=== PATIENT | male | born 1960 | race Two or more races ===

== ENCOUNTER 2021-01-05 09:20 | Emergency (ER) | payer OTHER ==
[~2021-01-05] VITALS: Ht 175.3 cm; Wt 80.3 kg
[2021-01-05] MEDS ORDERED: HYDROmorphone HCL 2 MG/ML VL IV ONE (09:45)
[2021-01-05] MEDS ORDERED: SILVER SULFADIAZINE 1 % TOPICAL CREAM 50GM TOP ONE (09:45)
[2021-01-05] MEDS ORDERED: SODIUM CHLORIDE 0.9% 1,000 ML IV ONE ×2 (09:45)
[2021-01-05] MEDS ORDERED: ONDANSETRON HCL 4 MG/2 ML VIAL IV ONE (09:45)
[2021-01-05 09:54] LABS: Basophils # (auto) 0 10 ^3/uL (0-0.2); Basophils % (auto) 0.7 % (0.0-2.0); Eosinophils # (auto) 0 10 ^3/uL (0-0.8); Eosinophils % (auto) 0.8 % (0.0-7.0); Hematocrit 38.7 % (41.0-53.0); Hemoglobin 13.7 g/dL (13.5-17.5); Lymphocytes # (auto) 0.9 10 ^3/uL (0.4-5.4); Lymphocytes % (auto) 22.7 % (10.0-50.0); Mean Corpuscular Hemoglobin 32.1 pg (28.0-32.0); Mean Corpuscular Hgb Conc. 35.5 g/dL (32.0-36.0); Mean Corpuscular Volume 90.4 fL (80.0-100.0); Monocytes # (auto) 0.3 10 ^3/uL (0-1.3); Monocytes % (auto) 8.5 % (0.0-12.0); Neutrophils # (auto) 2.6 10 ^3/uL (1.6-8.6); Neutrophils % (auto) 67.3 % (37.0-80.0); Platelet Count (auto) 299 10^3/uL (140-450); Red Blood Cells 4.28 10^6/uL (4.5-5.90); Red Cell Distribution Width 13.9 % (11.8-14.3); White Blood Cell 3.9 10^3/uL (4.4-10.8)
[2021-01-05] MEDS ORDERED: PIPERACILLIN-TAZOB 3.375GM 100 ML IV ONE (10:00)
[2021-01-05 10:03] LABS: Potassium 3.8 mmol/L (3.5-5.1)
[2021-01-05 10:10] LABS: Albumin 3.5 g/dL (3.4-5.0); BUN/Creatinine Ratio 7.3; Bilirubin, Total 0.7 mg/dL (0.2-1.0); Calcium 8.8 mg/dL (8.5-10.1); Total Protein 8.9 g/dL (6.4-8.2)
[2021-01-05] MEDS ORDERED: diphenhdrAMINE HCL 50 MG/1 ML VL ONE (11:40)
[2021-01-05] MEDS ORDERED: diphenhdrAMINE HCL 50 MG/1 ML VL IV ONE (12:15)
[2021-01-05 12:41] VITALS: BP 136/68
== END 2021-01-05 13:13 | disposition short-term general hospital (02) ==
LOC: EDBD 09:20 → ER 09:20
DX: T24.202A Burn of second degree of unspecified site of left lower limb, except ankle and foot, initial encounter (principal); I10 Essential (primary) hypertension; F17.200 Nicotine dependence, unspecified, uncomplicated; R42 Dizziness and giddiness; F12.10 Cannabis abuse, uncomplicated; E87.1 Hypo-osmolality and hyponatremia; Z20.822 Contact with and (suspected) exposure to COVID-19; X12.XXXA Contact with other hot fluids, initial encounter; Y93.89 Activity, other specified; Y92.89 Other specified places as the place of occurrence of the external cause; Y99.8 Other external cause status
CPT/HCPCS: 16020; 36415; 71045; 73700; 80053; 82550; 84484; 85025; 87426; 96365; 96366; 96375; 99285; J1170; J1200; J2405; J2543; J7030

== ENCOUNTER 2021-02-17 13:11 | Inpatient (IN) | payer OTHER ==
[~2021-02-17] VITALS: Ht 172.7 cm; Wt 73.0 kg
[2021-02-17] MEDS ORDERED: THIAMINE 100mg/ml INJ (200mg/2ml VIAL) IV ONE (13:45)
[2021-02-17] MEDS ORDERED: SODIUM CHLORIDE 0.9% 1,000 ML IV ONE ×2 (13:45)
[2021-02-17 14:21] LABS: Basophils # (auto) 0 10 ^3/uL (0-0.2); Basophils % (auto) 0.7 % (0.0-2.0); Eosinophils # (auto) 0.1 10 ^3/uL (0-0.8); Eosinophils % (auto) 2.5 % (0.0-7.0); Hematocrit 27.1 % (41.0-53.0); Hemoglobin 9.3 g/dL (13.5-17.5); Lymphocytes % (auto) 24.8 % (10.0-50.0); Mean Corpuscular Hemoglobin 30.2 pg (28.0-32.0); Mean Corpuscular Hgb Conc. 34.5 g/dL (32.0-36.0); Mean Corpuscular Volume 87.5 fL (80.0-100.0); Monocytes # (auto) 0.6 10 ^3/uL (0-1.3); Monocytes % (auto) 13.6 % (0.0-12.0); Neutrophils # (auto) 2.4 10 ^3/uL (1.6-8.6); Neutrophils % (auto) 58.4 % (37.0-80.0); Red Blood Cells 3.09 10^6/uL (4.5-5.90); Red Cell Distribution Width 13.7 % (11.8-14.3); White Blood Cell 4.1 10^3/uL (4.4-10.8)
[2021-02-17 14:28] LABS: Albumin 2.4 g/dL (3.4-5.0); Anion Gap 13 (5-15); BUN/Creatinine Ratio 5.3; Blood Urea Nitrogen 4 mg/dL (7-18); Carbon Dioxide 23 mmol/L (21-32); Chloride 78 mmol/L (98-107); GFR African American 136 mL/min; GFR Non-African American 112 mL/min; Glucose 94 mg/dL (74-106); Magnesium 1.4 mg/dL (1.6-2.6)
[2021-02-17 14:34] LABS: Alanine Aminotransferase 15 U/L (16-61); Alkaline Phosphatase 93 U/L (45-117); Aspartate Aminotransferase 31 U/L (15-37); Bilirubin, Total 0.5 mg/dL (0.2-1.0); Total Protein 6.6 g/dL (6.4-8.2)
[2021-02-17 14:49] LABS: Potassium 2.5 mmol/L (3.5-5.1); Sodium 114 mmol/L (136-145)
[2021-02-17 15:07] LABS: Urine Bacteria NONE SEEN /hpf (None Seen); Urine Blood Negative /uL (Negative); Urine Specific Gravity 1.004 (1.001-1.035); Urine WBC 6 /hpf (0 - 3)
[2021-02-17] MEDS ORDERED: ONDANSETRON HCL 4 MG/2 ML VIAL IV ONE (15:15)
[2021-02-17] MEDS: POTASSIUM CHL 20MEQ/100ML 100 ML IV ONE ×2 (15:15→15:27)
[2021-02-17 15:23] LABS: Amphetamine Screen, Urine NEGATIVE (NEGATIVE); Barbiturate Scree,Urine NEGATIVE (NEGATIVE); Benzodiazephine Screen, Urine NEGATIVE (NEGATIVE); Cannabinoid Screen, Urine NEGATIVE (NEGATIVE); Cocaine Screen, Urine NEGATIVE (NEGATIVE); Opiate Scree,Urine NEGATIVE (NEGATIVE); Phencyclidine Screen, Urine NEGATIVE (NEGATIVE)
[2021-02-17] MEDS ORDERED: MORPHINE SULFATE INJECTION 2 MG/ML SYRG IV PRN ×3 (15:45→17:15)
[2021-02-17] MEDS ORDERED: MAGNESIUM SULFATE 1GM/100ML 100 ML IV ONE ×3 (15:45→23:28)
[2021-02-17] MEDS ORDERED: NITROGLYCERIN 0.4 MG SL TAB SL PRN ×2 (15:45→17:15)
[2021-02-17] MEDS ORDERED: chlordiazePOXIDE HCL 5 MG CAP PO ONE (15:45)
[2021-02-17] MEDS: POTASSIUM CHLORIDE 20 MEQ, LIDOCAINE 1% (LOCAL ANESTH.) 2 ML in SODIUM CHL 0.9% 100 ML IV SCH ×3 (16:00→23:21)
[2021-02-17] MEDS ORDERED: chlorproMAZINE INECTION 25 MG in SODIUM CHL 0.9% 50 ML IV ONE (16:00)
[2021-02-17] MEDS ORDERED: HYDRX10T PO (16:29)
[2021-02-17] MEDS ORDERED: BACL10TA PO (16:29)
[2021-02-17] MEDS ORDERED: HYDR1TAB97 PO (16:29)
[2021-02-17] MEDS ORDERED: BENA20TA14 PO (16:29)
[2021-02-17] MEDS ORDERED: HYDR12.55 PO (16:29)
[2021-02-17] MEDS ORDERED: IBUP600T27 PO (16:29)
[2021-02-17] MEDS ORDERED: OME20T PO (16:29)
[2021-02-17] MEDS ORDERED: LORazepam 0.5 MG TAB PO PRN (17:15)
[2021-02-17] MEDS ORDERED: ACETAMINOPHEN 325 MG TAB PO PRN (17:15)
[2021-02-17] MEDS ORDERED: FOLIC ACID 1 MG TAB PO ONE (17:15)
[2021-02-17] MEDS ORDERED: MULTIPLE VITAMINS W/ MINERALS TAB PO ONE (17:15)
[2021-02-17] MEDS ORDERED: SOD CHL 0.9%/ KCL 20MEQ 1,000 ML IV SCH (17:15)
[2021-02-17] MEDS ORDERED: CLINDAMYCIN 600MG IV 50 ML IV ONE (17:15)
[2021-02-17] MEDS ORDERED: THIAMINE HCL 100 MG TAB PO ONE (17:15)
[2021-02-17] MEDS ORDERED: PANTOPRAZOLE 40 MG/10 ML VIAL INJ IV ONE (17:15)
[2021-02-17] MEDS ORDERED: METOCLOPRAMIDE HCL 5MG/ml INJ 2ml VIAL IV PRN (17:15)
[2021-02-17] MEDS ORDERED: ALUM & MAG HYDROX-SIMETH LIQ(MAALOX) 30 ML PO PRN (17:15)
[2021-02-17] MEDS ORDERED: cefTRIAXone 1GM/50ML D5W 50 ML IV ONE (17:15)
[2021-02-17] MEDS ORDERED: DOCUSATE SOD 100 MG CAP PO PRN (17:15)
[2021-02-17] MEDS ORDERED: POTASSIUM CHL 20MEQ/100ML 100 ML IV SCH (17:30)
[2021-02-17] MEDS: chlordiazePOXIDE HCL 25 MG CAP PO SCH (18:00)
[2021-02-17 20:34] LABS: Cholesterol 116 mg/dL (< 200); HDL Cholesterol 90 mg/dL (40-59); LDL Cholesterol 23 mg/dL (< 100); Triglycerides 29 mg/dL (< 150)
[2021-02-17] MEDS: MAGNESIUM SULFATE 1GM/100ML 100 ML IV SCH ×2 (21:25→23:30)
[2021-02-17 22:09] VITALS: BP 131/64
[2021-02-17] MEDS: CLINDAMYCIN 600MG IV 50 ML IV SCH (22:28)
[2021-02-17] MEDS: BACLOFEN 10 MG TAB PO SCH (22:37)
[2021-02-17] MEDS: SILVER SULFADIAZINE 1 % TOPICAL CREAM 50GM TOP SCH (22:37)
[2021-02-17] MEDS: hydrOXYzine HCL 10 MG TAB PO SCH (22:37)
[2021-02-18] MEDS: chlordiazePOXIDE HCL 25 MG CAP PO SCH ×2 (01:49→09:46)
[2021-02-18 05:00] VITALS: BP 154/74
[2021-02-18] MEDS: CLINDAMYCIN 600MG IV 50 ML IV SCH ×3 (06:21→22:36)
[2021-02-18] MEDS: BACLOFEN 10 MG TAB PO SCH ×3 (06:22→22:00)
[2021-02-18] MEDS: hydrOXYzine HCL 10 MG TAB PO SCH ×3 (06:23→22:00)
[2021-02-18 06:39] LABS: Magnesium 2.2 mg/dL (1.6-2.6); Potassium 3.2 mmol/L (3.5-5.1)
[2021-02-18 06:41] LABS: Phosphorus 3.1 mg/dL (2.5-4.90)
[2021-02-18 07:19] LABS: Basophils # (auto) 0 10 ^3/uL (0-0.2); Basophils % (auto) 0.4 % (0.0-2.0); Eosinophils # (auto) 0 10 ^3/uL (0-0.8); Eosinophils % (auto) 0.7 % (0.0-7.0); Hematocrit 26.2 % (41.0-53.0); Hemoglobin 9.3 g/dL (13.5-17.5); Lymphocytes # (auto) 0.6 10 ^3/uL (0.4-5.4); Lymphocytes % (auto) 12.1 % (10.0-50.0); Mean Corpuscular Hemoglobin 31.4 pg (28.0-32.0); Mean Corpuscular Hgb Conc. 35.4 g/dL (32.0-36.0); Mean Corpuscular Volume 88.9 fL (80.0-100.0); Monocytes # (auto) 0.6 10 ^3/uL (0-1.3); Monocytes % (auto) 10.5 % (0.0-12.0); Neutrophils # (auto) 4.1 10 ^3/uL (1.6-8.6); Neutrophils % (auto) 76.3 % (37.0-80.0); Nucleated Red Blood Cells % 0.1 %; Red Blood Cells 2.95 10^6/uL (4.5-5.90); Red Cell Distribution Width 13.9 % (11.8-14.3); White Blood Cell 5.4 10^3/uL (4.4-10.8)
[2021-02-18 07:26] LABS: Albumin 2.2 g/dL (3.4-5.0); Calcium 8.4 mg/dL (8.5-10.1); Potassium 3.2 mmol/L (3.5-5.1)
[2021-02-18 07:30] LABS: BUN/Creatinine Ratio 6.2; Bilirubin, Total 0.7 mg/dL (0.2-1.0); Total Protein 6.5 g/dL (6.4-8.2)
[2021-02-18 09:00] VITALS: BP 151/68
[2021-02-18] MEDS: cefTRIAXone 1GM/50ML D5W 50 ML IV SCH (09:00)
[2021-02-18] MEDS: ENOXAPARIN SOD 40 MG/0.4 ML SYRINGE SC SCH (09:44)
[2021-02-18] MEDS: PANTOPRAZOLE 40 MG/10 ML VIAL INJ IV SCH (09:46)
[2021-02-18] MEDS ORDERED: FOLIC ACID 1 MG TAB PO SCH (10:00)
[2021-02-18] MEDS ORDERED: THIAMINE HCL 100 MG TAB PO SCH (10:00)
[2021-02-18] MEDS ORDERED: MULTIPLE VITAMINS W/ MINERALS TAB PO SCH (10:00)
[2021-02-18] MEDS: SILVER SULFADIAZINE 1 % TOPICAL CREAM 50GM TOP SCH ×2 (10:41→22:00)
[2021-02-18 13:00] VITALS: BP 164/78
[2021-02-18] MEDS: FOLIC ACID 1 MG, MULTIPLE VITAMIN 10 ML, MAGNESIUM SULF SDV 50% 8 MEQ, THIAMINE INJ 100... INJ SCH ×5 (14:45)
[2021-02-18] MEDS: hydrALAZINE HCL 20 MG/ML VL IV PRN (16:44)
[2021-02-18 17:00] VITALS: BP 169/75
[2021-02-18] MEDS: cloNIDine HCL 0.1 MG TAB PO PRN (18:00)
[2021-02-18] MEDS ORDERED: LORazepam 2MG/ML-1ML VIAL IV PRN (21:45)
[2021-02-18 22:00] VITALS: BP 114/58
[2021-02-18] MEDS: ATORVASTATIN 20 MG TAB PO SCH (22:00)
[2021-02-18] MEDS ORDERED: chlordiazePOXIDE HCL 25 MG CAP PO SCH (22:00)
[2021-02-18] MEDS: HYDROcodone-ACET 5/325MG TAB PO PRN (23:44)
[2021-02-19 05:06] VITALS: BP 159/76
[2021-02-19] MEDS: CLINDAMYCIN 600MG IV 50 ML IV SCH ×3 (05:33→21:44)
[2021-02-19 05:35] LABS: Basophils # (auto) 0.1 10 ^3/uL (0-0.2); Eosinophils # (auto) 0.1 10 ^3/uL (0-0.8); Hematocrit 25.8 % (41.0-53.0); Lymphocytes # (auto) 1.1 10 ^3/uL (0.4-5.4); Lymphocytes % (auto) 16.6 % (10.0-50.0); Mean Corpuscular Hemoglobin 31.4 pg (28.0-32.0); Mean Corpuscular Hgb Conc. 34.9 g/dL (32.0-36.0); Mean Corpuscular Volume 89.8 fL (80.0-100.0); Monocytes # (auto) 0.7 10 ^3/uL (0-1.3); Monocytes % (auto) 10.9 % (0.0-12.0); Neutrophils # (auto) 4.6 10 ^3/uL (1.6-8.6); Neutrophils % (auto) 69.5 % (37.0-80.0); Red Blood Cells 2.88 10^6/uL (4.5-5.90); Red Cell Distribution Width 14.4 % (11.8-14.3); White Blood Cell 6.6 10^3/uL (4.4-10.8)
[2021-02-19] MEDS: hydrALAZINE HCL 20 MG/ML VL IV PRN (05:54)
[2021-02-19] MEDS: BACLOFEN 10 MG TAB PO SCH ×3 (05:54→21:44)
[2021-02-19] MEDS: hydrOXYzine HCL 10 MG TAB PO SCH ×3 (05:58→21:44)
[2021-02-19 06:04] LABS: Alanine Aminotransferase 14 U/L (16-61); Albumin 2.2 g/dL (3.4-5.0); Anion Gap 7 (5-15); Aspartate Aminotransferase 19 U/L (15-37); BUN/Creatinine Ratio 7.9; Blood Alcohol < 3.0 mg/dL (0-5); Blood Urea Nitrogen 7 mg/dL (7-18); Calcium 8.7 mg/dL (8.5-10.1); Carbon Dioxide 26 mmol/L (21-32); Chloride 97 mmol/L (98-107); GFR African American 111 mL/min; GFR Non-African American 92 mL/min; Glucose 98 mg/dL (74-106); Potassium 3.4 mmol/L (3.5-5.1); Sodium 130 mmol/L (136-145)
[2021-02-19 06:06] LABS: Alkaline Phosphatase 91 U/L (45-117); Bilirubin, Total 0.5 mg/dL (0.2-1.0); Total Protein 6.5 g/dL (6.4-8.2)
[2021-02-19 06:38] VITALS: BP 139/73
[2021-02-19 09:14] VITALS: BP 155/74
[2021-02-19] MEDS: cefTRIAXone 1GM/50ML D5W 50 ML IV SCH (09:40)
[2021-02-19] MEDS: ENOXAPARIN SOD 40 MG/0.4 ML SYRINGE SC SCH (09:40)
[2021-02-19] MEDS: cloNIDine HCL 0.1 MG TAB PO PRN (09:40)
[2021-02-19] MEDS: PANTOPRAZOLE 40 MG/10 ML VIAL INJ IV SCH (09:40)
[2021-02-19] MEDS: ASPirin 81 mg TAB PO SCH (09:41)
[2021-02-19] MEDS: MUPIROCIN 2% OINT 15gm or 22gm EACHNOSTRI SCH ×2 (10:00→21:44)
[2021-02-19 13:00] VITALS: BP 126/65
[2021-02-19] MEDS: FOLIC ACID 1 MG, MULTIPLE VITAMIN 10 ML, MAGNESIUM SULF SDV 50% 8 MEQ, THIAMINE INJ 100... INJ SCH ×5 (13:00)
[2021-02-19 16:46] VITALS: BP 164/78
[2021-02-19] MEDS: ATORVASTATIN 20 MG TAB PO SCH (21:44)
[2021-02-19 22:00] VITALS: BP 154/71
[2021-02-19] MEDS ORDERED: chlordiazePOXIDE HCL 25 MG CAP PO SCH (22:00)
[2021-02-20 05:00] VITALS: BP 139/71
[2021-02-20] MEDS: hydrOXYzine HCL 10 MG TAB PO SCH ×3 (06:00→21:26)
[2021-02-20] MEDS: BACLOFEN 10 MG TAB PO SCH ×3 (06:04→21:26)
[2021-02-20] MEDS: CLINDAMYCIN 600MG IV 50 ML IV SCH ×3 (06:04→21:26)
[2021-02-20 09:00] VITALS: BP 128/60
[2021-02-20] MEDS: cefTRIAXone 1GM/50ML D5W 50 ML IV SCH (09:35)
[2021-02-20] MEDS: ENOXAPARIN SOD 40 MG/0.4 ML SYRINGE SC SCH (10:00)
[2021-02-20] MEDS: MUPIROCIN 2% OINT 15gm or 22gm EACHNOSTRI SCH ×2 (10:00→21:26)
[2021-02-20] MEDS: PANTOPRAZOLE 40 MG/10 ML VIAL INJ IV SCH (10:00)
[2021-02-20] MEDS: ASPirin 81 mg TAB PO SCH (10:00)
[2021-02-20] MEDS ORDERED: LORazepam 2MG/ML-1ML VIAL IV ONE (11:45)
[2021-02-20] MEDS: FOLIC ACID 1 MG, MULTIPLE VITAMIN 10 ML, MAGNESIUM SULF SDV 50% 8 MEQ, THIAMINE INJ 100... INJ SCH ×5 (12:00)
[2021-02-20 13:00] VITALS: BP 187/84
[2021-02-20] MEDS: hydrALAZINE HCL 20 MG/ML VL IV PRN (18:37)
[2021-02-20] MEDS: ATORVASTATIN 20 MG TAB PO SCH (21:26)
[2021-02-20 22:00] VITALS: BP 176/79
[2021-02-20] MEDS: cloNIDine HCL 0.1 MG TAB PO PRN (22:39)
[2021-02-21] VITALS (7 sets, daily range): BP systolic 141–179; BP diastolic 68–99
[2021-02-21] MEDS: BACLOFEN 10 MG TAB PO SCH ×3 (05:28→21:59)
[2021-02-21] MEDS: CLINDAMYCIN 600MG IV 50 ML IV SCH ×3 (05:28→22:00)
[2021-02-21] MEDS: hydrOXYzine HCL 10 MG TAB PO SCH ×3 (05:29→22:00)
[2021-02-21] MEDS ORDERED: chlordiazePOXIDE HCL 25 MG CAP PO SCH (07:00)
[2021-02-21] MEDS: ASPirin 81 mg TAB PO SCH (10:00)
[2021-02-21] MEDS: PANTOPRAZOLE 40 MG/10 ML VIAL INJ IV SCH (10:00)
[2021-02-21] MEDS: cefTRIAXone 1GM/50ML D5W 50 ML IV SCH (10:01)
[2021-02-21] MEDS: ENOXAPARIN SOD 40 MG/0.4 ML SYRINGE SC SCH (10:02)
[2021-02-21] MEDS: MUPIROCIN 2% OINT 15gm or 22gm EACHNOSTRI SCH ×2 (10:02→22:09)
[2021-02-21] MEDS: FOLIC ACID 1 MG, MULTIPLE VITAMIN 10 ML, MAGNESIUM SULF SDV 50% 8 MEQ, THIAMINE INJ 100... INJ SCH ×5 (12:41)
[2021-02-21] MEDS: Ensure HIGH Protein Chocolate 8oz Bottle PO SCH (18:00)
[2021-02-21] MEDS: ATORVASTATIN 20 MG TAB PO SCH (22:00)
[2021-02-21] MEDS: hydrALAZINE HCL 20 MG/ML VL IV PRN (22:10)
[2021-02-22] MEDS: HYDROcodone-ACET 5/325MG TAB PO PRN (01:59)
[2021-02-22 05:00] VITALS: BP 159/85
[2021-02-22 05:37] LABS: Basophils # (auto) 0 10 ^3/uL (0-0.2); Basophils % (auto) 0.8 % (0.0-2.0); Eosinophils # (auto) 0.4 10 ^3/uL (0-0.8); Eosinophils % (auto) 7.6 % (0.0-7.0); Hematocrit 25.6 % (41.0-53.0); Hemoglobin 8.8 g/dL (13.5-17.5); Lymphocytes # (auto) 1.1 10 ^3/uL (0.4-5.4); Lymphocytes % (auto) 23.6 % (10.0-50.0); Mean Corpuscular Hgb Conc. 34.5 g/dL (32.0-36.0); Mean Corpuscular Volume 89.8 fL (80.0-100.0); Monocytes # (auto) 0.7 10 ^3/uL (0-1.3); Monocytes % (auto) 15.6 % (0.0-12.0); Neutrophils # (auto) 2.4 10 ^3/uL (1.6-8.6); Neutrophils % (auto) 52.4 % (37.0-80.0); Nucleated Red Blood Cells % 0.1 %; Red Blood Cells 2.85 10^6/uL (4.5-5.90); Red Cell Distribution Width 14.3 % (11.8-14.3); White Blood Cell 4.6 10^3/uL (4.4-10.8)
[2021-02-22 05:41] LABS: Albumin 2.2 g/dL (3.4-5.0); BUN/Creatinine Ratio 10.8; Calcium 8.6 mg/dL (8.5-10.1); Potassium 3.5 mmol/L (3.5-5.1)
[2021-02-22] MEDS: BACLOFEN 10 MG TAB PO SCH ×3 (05:43→21:17)
[2021-02-22 05:44] LABS: Bilirubin, Total 0.3 mg/dL (0.2-1.0); Total Protein 6.5 g/dL (6.4-8.2)
[2021-02-22] MEDS: hydrOXYzine HCL 10 MG TAB PO SCH ×2 (05:45→14:00)
[2021-02-22] MEDS: CLINDAMYCIN 600MG IV 50 ML IV SCH ×3 (05:45→21:17)
[2021-02-22] MEDS: Ensure HIGH Protein Chocolate 8oz Bottle PO SCH ×2 (08:00→12:00)
[2021-02-22 09:00] VITALS: BP 147/85
[2021-02-22] MEDS: PANTOPRAZOLE 40 MG/10 ML VIAL INJ IV SCH (10:30)
[2021-02-22] MEDS: ASPirin 81 mg TAB PO SCH (10:30)
[2021-02-22] MEDS: cefTRIAXone 1GM/50ML D5W 50 ML IV SCH (10:31)
[2021-02-22] MEDS: ENOXAPARIN SOD 40 MG/0.4 ML SYRINGE SC SCH (10:31)
[2021-02-22] MEDS: MUPIROCIN 2% OINT 15gm or 22gm EACHNOSTRI SCH ×2 (10:42→21:17)
[2021-02-22] MEDS: FOLIC ACID 1 MG, MULTIPLE VITAMIN 10 ML, MAGNESIUM SULF SDV 50% 8 MEQ, THIAMINE INJ 100... INJ SCH ×5 (12:50)
[2021-02-22 13:11] VITALS: BP 152/84
[2021-02-22 16:56] VITALS: BP 145/82
[2021-02-22] MEDS: ATORVASTATIN 20 MG TAB PO SCH (21:17)
[2021-02-22 22:00] VITALS: BP 154/78
[2021-02-23 05:00] VITALS: BP 137/85
[2021-02-23] MEDS: CLINDAMYCIN 600MG IV 50 ML IV SCH ×3 (05:17→21:15)
[2021-02-23] MEDS: BACLOFEN 10 MG TAB PO SCH ×3 (05:18→21:15)
[2021-02-23] MEDS: Ensure HIGH Protein Chocolate 8oz Bottle PO SCH ×3 (08:15→18:00)
[2021-02-23 09:00] VITALS: BP 165/81
[2021-02-23] MEDS: ASPirin 81 mg TAB PO SCH (09:27)
[2021-02-23] MEDS: MUPIROCIN 2% OINT 15gm or 22gm EACHNOSTRI SCH ×2 (09:28→21:14)
[2021-02-23] MEDS: PANTOPRAZOLE 40 MG/10 ML VIAL INJ IV SCH (09:28)
[2021-02-23] MEDS: cefTRIAXone 1GM/50ML D5W 50 ML IV SCH (09:28)
[2021-02-23] MEDS: ENOXAPARIN SOD 40 MG/0.4 ML SYRINGE SC SCH (09:28)
[2021-02-23] MEDS: FOLIC ACID 1 MG, MULTIPLE VITAMIN 10 ML, MAGNESIUM SULF SDV 50% 8 MEQ, THIAMINE INJ 100... INJ SCH ×5 (12:10)
[2021-02-23] MEDS: HYDROcodone-ACET 5/325MG TAB PO PRN (16:25)
[2021-02-23 17:01] VITALS: BP 159/89
[2021-02-23] MEDS: ATORVASTATIN 20 MG TAB PO SCH (21:15)
[2021-02-23] MEDS: hydrALAZINE HCL 20 MG/ML VL IV PRN (22:38)
[2021-02-24 05:14] VITALS: BP 199/88
[2021-02-24] MEDS: BACLOFEN 10 MG TAB PO SCH ×2 (05:39→14:00)
[2021-02-24] MEDS: CLINDAMYCIN 600MG IV 50 ML IV SCH ×2 (05:39→14:00)
[2021-02-24] MEDS: cloNIDine HCL 0.1 MG TAB PO PRN (05:40)
[2021-02-24] MEDS: Ensure HIGH Protein Chocolate 8oz Bottle PO SCH ×2 (08:00→12:00)
[2021-02-24 09:00] VITALS: BP 142/70
[2021-02-24] MEDS: cefTRIAXone 1GM/50ML D5W 50 ML IV SCH (09:00)
[2021-02-24] MEDS: ASPirin 81 mg TAB PO SCH (10:00)
[2021-02-24] MEDS: PANTOPRAZOLE 40 MG/10 ML VIAL INJ IV SCH (10:00)
[2021-02-24] MEDS: ENOXAPARIN SOD 40 MG/0.4 ML SYRINGE SC SCH (10:00)
[2021-02-24] MEDS: FOLIC ACID 1 MG, MULTIPLE VITAMIN 10 ML, MAGNESIUM SULF SDV 50% 8 MEQ, THIAMINE INJ 100... INJ SCH ×5 (12:00)
[2021-02-24 12:09] VITALS: BP 149/67
[2021-02-24 13:50] VITALS: BP 150/68
== END 2021-02-24 14:00 | disposition home health service (06) | DRG 896 ==
LOC: EDBD 13:11 → ER 13:11 → TELE 15:35 → TELE-WESTW 16:55
PROVIDERS: ADMIT Hospitalist; ATTEND Family Medicine
DX: F10.129 Alcohol abuse with intoxication, unspecified (principal); G92 Toxic encephalopathy; J69.0 Pneumonitis due to inhalation of food and vomit; E43 Unspecified severe protein-calorie malnutrition; E87.1 Hypo-osmolality and hyponatremia; L03.116 Cellulitis of left lower limb; N39.0 Urinary tract infection, site not specified; F10.139 Alcohol abuse with withdrawal, unspecified; E83.42 Hypomagnesemia; E87.6 Hypokalemia; T24.202A Burn of second degree of unspecified site of left lower limb, except ankle and foot, initial encounter; K29.20 Alcoholic gastritis without bleeding; I10 Essential (primary) hypertension; G56.21 Lesion of ulnar nerve, right upper limb; B95.62 Methicillin resistant Staphylococcus aureus infection as the cause of diseases classified elsewhere; F41.9 Anxiety disorder, unspecified; D63.8 Anemia in other chronic diseases classified elsewhere; E78.5 Hyperlipidemia, unspecified; Z20.822 Contact with and (suspected) exposure to COVID-19; F12.90 Cannabis use, unspecified, uncomplicated; F17.200 Nicotine dependence, unspecified, uncomplicated; M19.90 Unspecified osteoarthritis, unspecified site; M21.331 Wrist drop, right wrist; Z68.24 Body mass index [BMI] 24.0-24.9, adult; Z83.3 Family history of diabetes mellitus; Z79.899 Other long term (current) drug therapy
CPT/HCPCS: 36415; 70450; 70551; 71045; 80053; 80061; 80307; 80320; 81001; 82140; 82962; 83036; 83735; 84100; 84132; 84443; 84484; 85025; 87040; 87076; 87077; 87081; 87086; 87088; 87186; 87205; 87426; 93005; 93306; 96361; 96365; 96368; 96375; C9113; G0378; J0696; J2001; J2405; J3480; J3490

== ENCOUNTER 2021-05-12 12:10 | Emergency (ER) | payer OTHER ==
[~2021-05-12] VITALS: Ht 172.7 cm; Wt 63.5 kg
[~2021-05-12 12:10] MED LIST: BACL10TA PO; BENA20TA14 PO; HYDR12.55 PO; HYDR1TAB97 PO; HYDRX10T PO; IBUP600T27 PO; OME20T PO
[2021-05-12 16:55] LABS: Calcium 8.2 mg/dL (8.5-10.1); Chloride 101 mmol/L (98-107); Potassium 3.4 mmol/L (3.5-5.1); Sodium 132 mmol/L (136-145)
[2021-05-12 16:56] LABS: Basophils # (auto) 0.1 10 ^3/uL (0-0.2); Basophils % (auto) 0.5 % (0.0-2.0); Eosinophils # (auto) 0 10 ^3/uL (0-0.8); Eosinophils % (auto) 0.1 % (0.0-7.0); Hematocrit 28.8 % (41.0-53.0); Hemoglobin 9.4 g/dL (13.5-17.5); Lymphocytes # (auto) 0.7 10 ^3/uL (0.4-5.4); Lymphocytes % (auto) 4.8 % (10.0-50.0); Mean Corpuscular Hemoglobin 28.8 pg (28.0-32.0); Mean Corpuscular Hgb Conc. 32.7 g/dL (32.0-36.0); Mean Corpuscular Volume 88.1 fL (80.0-100.0); Monocytes # (auto) 0.6 10 ^3/uL (0-1.3); Monocytes % (auto) 4.2 % (0.0-12.0); Neutrophils # (auto) 12.3 10 ^3/uL (1.6-8.6); Neutrophils % (auto) 90.4 % (37.0-80.0); Nucleated Red Blood Cells % 0.1 %; Red Blood Cells 3.27 10^6/uL (4.5-5.90); Red Cell Distribution Width 17.8 % (11.8-14.3); White Blood Cell 13.6 10^3/uL (4.4-10.8)
[2021-05-12 16:58] LABS: Alanine Aminotransferase 10 U/L (16-61); Albumin 1.4 g/dL (3.4-5.0); Anion Gap 12 (5-15); Aspartate Aminotransferase 12 U/L (15-37); BUN/Creatinine Ratio 4.6; Blood Urea Nitrogen 4 mg/dL (7-18); Carbon Dioxide 19 mmol/L (21-32); GFR African American 114 mL/min; GFR Non-African American 94 mL/min; Glucose 100 mg/dL (74-106); Magnesium 1.7 mg/dL (1.6-2.6)
[2021-05-12 17:04] LABS: Alkaline Phosphatase 155 U/L (45-117); Bilirubin, Total 0.4 mg/dL (0.2-1.0); Total Protein 6.8 g/dL (6.4-8.2)
[2021-05-12 19:36] VITALS: BP 142/70
== END 2021-05-12 20:04 | disposition home or self-care (01) ==
LOC: EDBD 12:10 → ER 12:10
DX: L03.116 Cellulitis of left lower limb (principal); I95.9 Hypotension, unspecified; F17.210 Nicotine dependence, cigarettes, uncomplicated; Z79.899 Other long term (current) drug therapy
CPT/HCPCS: 36415; 73700; 80053; 83735; 84484; 85025; 93005

== ENCOUNTER 2021-05-18 14:54 | Emergency (ER) | payer OTHER ==
[~2021-05-18] VITALS: Ht 172.7 cm; Wt 63.5 kg
[2021-05-18] MEDS ORDERED: TERBUTALINE SULFATE 1 MG/ML 1ML VIAL SC ONE (15:45)
[2021-05-18] MEDS ORDERED: SODIUM CHLORIDE 0.9% 250 ML IV ONE (15:45)
[2021-05-18] MEDS ORDERED: ONDANSETRON HCL 4 MG/2 ML VIAL IV ONE (15:45)
[2021-05-18] MEDS ORDERED: methylPREDNISolone SOD SUCC 125 MG/2 ML VL IV ONE (15:45)
[2021-05-18 16:17] LABS: Basophils # (auto) 0 10 ^3/uL (0-0.2); Basophils % (auto) 0.1 % (0.0-2.0); Eosinophils # (auto) 0 10 ^3/uL (0-0.8); Eosinophils % (auto) 0.2 % (0.0-7.0); Hemoglobin 8.4 g/dL (13.5-17.5); Lymphocytes # (auto) 0.4 10 ^3/uL (0.4-5.4); Lymphocytes % (auto) 5.4 % (10.0-50.0); Mean Corpuscular Hemoglobin 28.7 pg (28.0-32.0); Mean Corpuscular Hgb Conc. 31.3 g/dL (32.0-36.0); Mean Corpuscular Volume 91.9 fL (80.0-100.0); Monocytes # (auto) 0.4 10 ^3/uL (0-1.3); Monocytes % (auto) 4.6 % (0.0-12.0); Neutrophils # (auto) 6.9 10 ^3/uL (1.6-8.6); Neutrophils % (auto) 89.7 % (37.0-80.0); Nucleated Red Blood Cells % 0.2 %; Red Blood Cells 2.94 10^6/uL (4.5-5.90); Red Cell Distribution Width 18.4 % (11.8-14.3); White Blood Cell 7.7 10^3/uL (4.4-10.8)
[2021-05-18 16:33] LABS: INR 2.79 (0.9-1.15); Partial Thromboplastin Time 47.8 sec (23.6-33.0)
[2021-05-18 16:45] LABS: Calcium 8.4 mg/dL (8.5-10.1); Chloride 100 mmol/L (98-107); Sodium 132 mmol/L (136-145)
[2021-05-18 16:50] LABS: Alanine Aminotransferase 181 U/L (16-61); Albumin 1.3 g/dL (3.4-5.0); Alkaline Phosphatase 351 U/L (45-117); Anion Gap 25 (5-15); Aspartate Aminotransferase 880 U/L (15-37); BUN/Creatinine Ratio 5.9; Bilirubin, Total 0.6 mg/dL (0.2-1.0); Blood Urea Nitrogen 11 mg/dL (7-18); GFR African American 48 mL/min; GFR Non-African American 39 mL/min; Glucose 55 mg/dL (74-106); Total Protein 5.9 g/dL (6.4-8.2)
[2021-05-18 16:52] LABS: Carbon Dioxide 7 mmol/L (21-32); Potassium 2.5 mmol/L (3.5-5.1)
[2021-05-18] MEDS ORDERED: ETOMIDATE (2MG/ML) 20ML VIAL IV ONE (16:54)
[2021-05-18] MEDS ORDERED: SUCCINYLCHOLINE CHLORIDE 20 MG/ML 10ML VIAL IV ONE (16:55)
[2021-05-18 17:00] VITALS: BP 122/53
[2021-05-18 17:08] LABS: Lactic Acid w/Reflex 14.6 mmol/L (0.4-2.0)
[2021-05-18] MEDS ORDERED: LORazepam 2MG/ML-1ML VIAL ONE (17:17)
[2021-05-18] MEDS ORDERED: LORazepam 2MG/ML-1ML VIAL IV ONE (17:30)
[2021-05-18] MEDS ORDERED: LORazepam 2MG/ML-1ML VIAL IV PRN (18:15)
[2021-05-18] MEDS ORDERED: MORPHINE SULFATE 10 MG/ML INJ 1ML SDV IV PRN (18:15)
[2021-05-18] MEDS ORDERED: MORPHINE SULFATE 4 MG/ML SYR/VIAL IV PRN ×2 (18:30)
[2021-05-18 21:41] VITALS: BP 105/40
[2021-05-19] MEDS ORDERED: MORPHINE SULFATE 4 MG/ML SYR/VIAL IV PRN (02:45)
[2021-05-19 04:00] VITALS: BP 70/34
== END 2021-05-19 06:32 | disposition home or self-care (01) ==
LOC: ER 14:54 → EDBD 14:54 → ER 05-19 06:32
DX: A41.9 Sepsis, unspecified organism (principal); R65.21 Severe sepsis with septic shock; J18.9 Pneumonia, unspecified organism; E87.2 Acidosis; R09.02 Hypoxemia; J44.9 Chronic obstructive pulmonary disease, unspecified; I10 Essential (primary) hypertension; F17.210 Nicotine dependence, cigarettes, uncomplicated; Z20.822 Contact with and (suspected) exposure to COVID-19; Z79.899 Other long term (current) drug therapy
CPT/HCPCS: 36415; 36600; 71045; 71250; 80053; 82805; 82962; 83605; 83880; 84484; 85025; 85610; 85730; 87040; 87426; 93005; 94660; 96372; 96374; 96375; 96376; 99291; J0330; J2060; J2270; J2405; J2930; J3105; J7050